=== PATIENT | female | born 1975 | race Two or more races ===

== ENCOUNTER 2022-03-16 12:51 | Emergency (ER) | payer OTHER ==
[~2022-03-16] VITALS: Ht 160 cm; Wt 59.0 kg
[2022-03-16] MEDS ORDERED: GLUMETZA500 MG PO (13:37)
== END 2022-03-16 15:30 | disposition home or self-care (01) ==
LOC: ER 12:51
DX: G51.0 Bell's palsy (principal)

== ENCOUNTER 2022-12-25 18:32 | Emergency (ER) | payer OTHER ==
[~2022-12-25] VITALS: Ht 160 cm; Wt 56.2 kg
[~2022-12-25 18:32] MED LIST: GLUMETZA500 MG PO; MECLIZINE HCL25 MG PO; TRULICITY1.5 MG/0.5
== END 2022-12-26 03:46 | disposition home or self-care (01) ==
LOC: ER 18:32
DX: R42 Dizziness and giddiness (principal); K29.70 Gastritis, unspecified, without bleeding; Z20.822 Contact with and (suspected) exposure to COVID-19